=== PATIENT | male | born 1960 | race Caucasian/White ===

== ENCOUNTER 2016-10-16 09:57 | Emergency (ER) | payer OTHER ==
[~2016-10-16 09:57] MED LIST: BACTRIM DS TAB1 EACH PO; BACTROBAN15 GM TP; DULOXETINE HCL60 MG PO; ESOMEPRAZOLE MA40 MG PO; MECLIZINE HCL25 MG PO; MIRAPEX1.5 MG PO; NEURONTIN 400400 MG PO; TYLENOL 325MG325 MG PO
== END 2016-10-16 15:05 | disposition home or self-care (01) ==
LOC: ER1 09:57
DX: G89.29 Other chronic pain (principal); M54.5 Low back pain; F17.210 Nicotine dependence, cigarettes, uncomplicated; Z88.1 Allergy status to other antibiotic agents
CPT/HCPCS: 72072; 72100; 96372; 99283; J1885